=== PATIENT | female | born 2000 | race Caucasian/White ===

== ENCOUNTER 2022-02-13 11:29 | Emergency (ER) | payer MEDICAID, SELFPAY ==
[2022-02-13 12:07] VITALS: BP 107/64; PULSE 89; RESP 15; TEMP 36.6; O2SAT 98; BMI 19.1
--- NOTE | 2022-02-13 12:11 | ED.URI ---
HPI - URI/Sore Throat General Chief Complaint: Upper Respiratory Symptoms Stated Complaint: not feeling well Time Seen by Provider: 02/13/22 13:25 Related Data Allergies Allergy/AdvReac Type Severity Reaction Status Date / Time No Known Allergies Allergy Verified 02/13/22 12:06 [facility] Social History Social History Advance Directives: No Advance Directives Information Provided: No Physical Exam Vital Signs: Vital Signs: Last Vital Signs Temp 98 F 02/13/22 12:07 Pulse 89 02/13/22 12:07 Resp 15 02/13/22 12:07 BP 107/64 02/13/22 12:07 Pulse Ox 98 02/13/22 12:07 O2 Del Method 02/13/22 12:07 BMI result Body Mass Index 19.1 Course Course Course Narrative: RMEzra: 21-year-old female visiting from [facility], 4 days of cough, fever, sore throat. She is awake and alert, answers questions appropriately, heart regular rate rhythm, abdomen soft nontender, Lungs were clear , abdomen soft and nontender.Patient will be checked for COVID and influenza. Patient does not need chest x-ray or labs. MDM - URI/Sore Throat Lab Data Labs: Lab Results 02/13/22 02/13/22 Range/Units 12:13 12:13 COVID-19 (JEAN) Negative (Negative) COVID-19 Clin Com See Note Influenza Type A (RYAN) Positive A (Negative) Influenza Type B (RYAN) Negative (Negative) Influenza A & B Note See Note Discharge Plan Discharge Clinical Impression: Influenza A Patient Disposition: Home, Self-Care Instructions: Influenza (ED) Additional Instructions: Sung positivo para influenza A. Debido a que tuvo s?ntomas dirk m?s de 48 horas, no calific? para Tamiflu. Recomendar hidrataci?n oral, descanso, Tylenol/Motrin para el control de la fiebre/dolor. Regrese a la sana de urgencias de inmediato por cualquier dolor en el pecho, dificultad para respirar, tos con shun, hinchaz?n de las piernas, debilidad, fiebre intratable, escalofr?os, cualquier otro s?ntoma preocupante. Por favor, magali un seguimiento con el proveedor de atenci?n primaria. Stand Alone Forms: Work/School Release Interventions: ED Discharge Assessment Last Done: 02/13/22 14:25 Discharge Date/Time: 02/13/22 14:25 Print Language: Telugu
[2022-02-13 12:40] LABS: COVID-19 Test Negative (Negative); IDNOW Serial# 16C4AD1C
[2022-02-13 12:55] LABS: Influenza A Positive (Negative); Influenza B2 Negative (Negative)
--- NOTE | 2022-02-13 14:16 | ED.GENADULT ---
HPI - General Adult General Chief complaint: Upper Respiratory Symptoms Stated complaint: not feeling well Time Seen by Provider: 02/13/22 13:25 Source: patient Mode of arrival: ambulatory Limitations: no limitations History of Present Illness HPI narrative: 21-year-old female presents to ED for 4 days of coughing, headache, and fever. Patient states mother and brother have similar symptoms. Patient denies any chest pain or shortness of breath Related Data Allergies Allergy/AdvReac Type Severity Reaction Status Date / Time No Known Allergies Allergy Verified 02/13/22 12:06 Review of Systems Review of Systems: Fever, headache, and cough Yes all other systems are reviewed and are negative [facility] Social History Social History Advance Directives: No Advance Directives Information Provided: No Physical Exam ED Vital Signs: Vital Signs - 24 hr 02/13/22 12:07 Temperature 98 F Pulse Rate 89 Respiratory Rate 15 Blood Pressure 107/64 Pulse Oximetry 98 Oxygen Delivery Method Room Air BMI result Body Mass Index 19.1 Const General: cooperative, healthy appearing, comfortable, no acute distress, well developed and alert Orientation/consciousness: oriented to person, oriented to place, oriented to time and patient oriented x3 HENMT Head: Yes normal to inspection, Yes No palpable skull fracture present, Yes normocephalic, Yes atraumatic and No abrasion Eyes General: appearance normal, both eyes and all related structures Neck Neck: Yes normal visual inspection, Yes full ROM, Yes no lymphadenopathy, Yes no meningeal signs, Yes trachea midline, Yes supple, No anterior neck swelling and No tender Chest Chest palpation & inspection: normal inspection of the chest and normal palpation of entire chest wall Resp Effort & Inspection: normal respiratory effort and able to speak in complete sentences Auscultation: clear to auscultation bilaterally Cardio Jugular venous distension: no JVD Heart sounds: S1 normal heart sound present and S2 normal heart sound present GI Inspection: Yes normal to inspection and No abdominal wall ecchymosis Palpation (GI): Soft to palpation, not firm, nontender, no guarding and not rigid General: No CVA tenderness and Yes no CVA tenderness Back/Spine/Pelvis Back: no CVA tenderness, No CVA tenderness and No back tenderness Skin General skin exam: no rashes or lesions noted and elasticity normal Neuro General: oriented to person, oriented to place, oriented to time, patient oriented x3, gait normal and no meningeal signs Cranial nerves: Yes CN's II-XII intact bilaterally Extrem Other: Lower extremities negative for swelling, pain edema, or calf tenderness General: Yes normal to inspection and Yes full ROM Psych Appearance: grossly normal, well kempt and not disheveled Course Course Course Narrative: SARs ordered. Reevaluation(s) Reevaluation #1: Patient positive for Influenza Time: 14:19 Medical Decision Making MDM Narrative Medical decision making narrative: It is influenza Lab Data Labs: Lab Results 02/13/22 02/13/22 Range/Units 12:13 12:13 COVID-19 (JEAN) Negative (Negative) COVID-19 Clin Com See Note Influenza Type A (RYAN) Positive A (Negative) Influenza Type B (RYAN) Negative (Negative) Influenza A & B Note See Note Discharge Plan Discharge Clinical Impression: Influenza A Patient Disposition: Home, Self-Care Instructions: Influenza (ED) Additional Instructions: Sung positivo para influenza A. Debido a que tuvo s?ntomas dirk m?s de 48 horas, no calific? para Tamiflu. Recomendar hidrataci?n oral, descanso, Tylenol/Motrin para el control de la fiebre/dolor. Regrese a la sana de urgencias de inmediato por cualquier dolor en el pecho, dificultad para respirar, tos con shun, hinchaz?n de las piernas, debilidad, fiebre intratable, escalofr?os, cualquier otro s?ntoma preocupante. Por favor, magali un seguimiento con el proveedor de atenci?n primaria. Stand Alone Forms: Work/School Release Print Language: Palauan
== END 2022-02-13 14:25 | disposition home or self-care (01) ==
PROVIDERS: Emergency Medicine Emergency Medical Services; Emergency Provider Student in an Organized Health Care Education/Training Program
DX: J11.1 Influenza due to unidentified influenza virus with other respiratory manifestations (principal); R50.9 Fever, unspecified; Z20.822 Contact with and (suspected) exposure to COVID-19
CPT/HCPCS: 87502; 87635; 99283